=== PATIENT | male | born 1960 | race Hispanic/Latino ===

== ENCOUNTER → 2019-04-18 | Outpatient (CLI) | payer OTHER | END | disposition home or self-care (01) | LOC: OIH 13:41 | PROVIDERS: ATTEND Internal Medicine | DX: M47.815 Spondylosis without myelopathy or radiculopathy, thoracolumbar region (principal); M51.86 Other intervertebral disc disorders, lumbar region; I51.9 Heart disease, unspecified; Z98.890 Other specified postprocedural states | CPT/HCPCS: 71046; 72100 ==

== ENCOUNTER → 2024-03-06 | Outpatient (CLI) | payer MEDICARE | END | disposition home or self-care (01) | LOC: RAH 12:33 | PROVIDERS: ATTEND Internal Medicine Cardiovascular Disease | DX: I35.8 Other nonrheumatic aortic valve disorders (principal); I11.9 Hypertensive heart disease without heart failure; I25.5 Ischemic cardiomyopathy | CPT/HCPCS: 93306 ==

== ENCOUNTER 2024-04-04 06:48 | Observation (INO) | payer MEDICARE ==
[2024-03-30 14:59] VITALS: BP 202/113; PULSE 95; RESP 18; TEMP 97.9
[2024-03-30 15:16] LABS: BASOPHILS # (AUTO) 0.13 K/uL (0.00-0.20); BASOPHILS % (AUTO) 1.3 % (0.0-5.0); EOSINOPHILS # (AUTO) 0.64 K/uL (0.00-0.70); EOSINOPHILS % (AUTO) 6.3 % (0.0-8.0); HEMATOCRIT 45.7 % (42-54); IMMATURE GRANULOCYTE ABSOLUTE 0.04 K/uL (0-1); LYMPHOCYTES # (AUTO) 2.6 K/uL (1.0-4.8); LYMPHOCYTES % (AUTO) 25.7 % (21.0-51.0); MEAN CORPUSCULAR HEMOGLOBIN 28.5 pg (27.0-33.0); MEAN CORPUSCULAR HGB CONC 32.2 g/dL (32.0-36.0); MEAN CORPUSCULAR VOLUME 88.6 fL (79-99); MONOCYTES # (AUTO) 0.8 K/uL (0.1-1.0); MONOCYTES % (AUTO) 7.8 % (3.0-13.0); NEUTROPHILS % (AUTO) 58.5 % (40.0-77.0); PLATELET COUNT (AUTO) 221 K/uL (130-400); RED BLOOD CELL COUNT(AUTO) 5.16 MIL/uL (4.50-6.20); RED CELL DISTRIBUTION WIDTH 13.7 % (11.0-15.5); WHITE BLOOD COUNT (AUTO) 10.2 K/uL (4.8-10.8)
[2024-03-30 15:30] LABS: INR 1.06 (0.85-1.15); PROTHROMBIN TIME 11.4 SEC (9.6-11.6)
[2024-03-30 15:31] LABS: CREATININE 1.1 mg/dL (0.5-1.3); POTASSIUM 4.1 mmol/L (3.5-5.1)
[2024-04-04] VITALS (22 sets, daily range): BP systolic 111–151; BP diastolic 64–92; PULSE 58–79; RESP 14–19; TEMP 97.6–98.2; O2SAT 97
[~2024-04-04] VITALS: Ht 177.8 cm; Wt 92.4 kg
[~2024-04-04 06:48] MED LIST: ATOR40TA71 PO; CARV25TA PO; CLOP75TA32 PO; LISI40TA9 PO; MONT-39 PO; PREG150C47 PO; TIZA-211 PO
[2024-04-04] MEDS ORDERED: dexaMETHasone SOD PHOSPHATE 4 MG/ML 1ML VIAL ONE (07:45)
[2024-04-04] MEDS ORDERED: LIDOCAINE PF 100MG/5ML (2%) SYRINGE 5ML ONE (07:45)
[2024-04-04] MEDS ORDERED: NEOSTIGMINE METHYLSULFATE 1MG/ML IV ONE (07:46)
[2024-04-04] MEDS ORDERED: MIDAZOLAM HCL 1 MG/ML 2ML VIAL ONE (07:46)
[2024-04-04] MEDS ORDERED: GLYCOPYRROLATE 0.2 MG/ML 5 ML VIAL ONE (07:46)
[2024-04-04] MEDS ORDERED: rocuRONium bROMide 10MG/1ML 5ML VL ONE ×2 (07:46→12:01)
[2024-04-04] MEDS ORDERED: ondanSETRON 4MG INJ ONE (07:46)
[2024-04-04] MEDS ORDERED: proPOFol 10 MG/ML 20ML VIAL IV ONE (07:46)
[2024-04-04] MEDS ORDERED: phenylEPHRINE HCL 10 MG/ML 1ML VIAL IV ONE (07:46)
[2024-04-04] MEDS ORDERED: FENTanyl CITRate PF 50 MCG/1 ML 5ML AMP IV ONE (07:47)
[2024-04-04] MEDS ORDERED: ROPivacaine 0.5% 5MG/ML 30ML ONE (07:53)
[2024-04-04] MEDS: ceFAZolin SODIUM 2 GM VIAL ONE (08:35)
[2024-04-04] MEDS: LACTATED RINGERS 1000ML 1,000 ML IV ONE (08:35)
[2024-04-04] MEDS: acetaMINOPHEN 100 ML ONE (10:26)
[2024-04-04] MEDS ORDERED: ePHEDrine SULFate 50 MG/ML AMPULE ONE (10:35)
[2024-04-04] MEDS: ceFAZolin SODIUM 1 GM VIAL ONE (11:10)
[2024-04-04] MEDS: BUPIvacaine HCL/EPINEPHrine/PF 0.25% 10ML VIAL IJ ONE (12:14)
[2024-04-04] MEDS ORDERED: ondanSETRON 4MG INJ IVP PRN (13:00)
[2024-04-04] MEDS ORDERED: INSULIN humuLIN R 100 UNIT/ML 3ML SQ PRN (13:00)
[2024-04-04] MEDS ORDERED: CEFAZOLIN SODIUM IV SCH (13:00)
[2024-04-04] MEDS ORDERED: acetaMINOPHEN 325 MG TAB PO PRN (13:00)
[2024-04-04] MEDS ORDERED: morPHINE 4 MG SYG IV PRN (13:00)
[2024-04-04] MEDS ORDERED: [UNRECOGNIZED DRUG - OTHER] IV SCH (13:00)
--- NOTE | 2024-04-04 13:07 | OP ---
Operative Note: DATE OF PROCEDURE: 04/04/24 SURGEON: ZARI BENAVIDES MD CHISEL WORKER: [facility] – [place] STAFF ANESTHESIA: GENERAL PREOPERATIVE DIAGNOSIS: LEFT INGUINAL HERNIA POSTOPERATIVE DIAGNOSIS: CHRONICALLY INCARCERATED LEFT INGUINAL HERNIA FINDINGS: LEFT DIRECT INGUINAL HERNIA CONTAINING SIGMOID COLON PROCEDURE: [ OPEN REPAIR OF INCARCERATED LEFT INGUINAL HERNIA WITH MESH] ESTIMATED BLOOD LOSS: 40 ML INDICATIONS: . These complications including bleeding, infection (mesh infection and), loss of testicle either during the surgery or in the postoperative period, recurrence of hernia, scrotal swelling and ecchymosis, seroma, chronic nerve pain, chronic groin pain, damages to the spermatic cord, testicle and nerves in the area. DESCRIPTION OF PROCEDURE: [The patient was taken to the operating room and placed on the operating table in supine position. Next general anesthesia was induced the patient was intubated. His abdomen, scrotum and thighs were prepped and and draped in a sterile fashion. A timeout was called and the patient's identity, procedure and preoperative antibiotics were all confirmed. I proceeded to do an open anterior repair of the inguinal hernia. I made a generous left inguinal incision. I dissected down through Camper's and Glory's fascia. I identified the external oblique. I carefully opened up the external oblique with the Metzenbaum scissors. I was not able to visualize the ilioinguinal nerve. I exposed the shelving edge of the inguinal ligament. After being pleased with my exposure I palpated the spermatic cord and encircled around it and I placed a Hortencia around the spermatic cord I dissected off some of the hernia sac off of that. The sac was chronically scarred and adherent to the cord structures. He was a little oozy. He had a history of taking blood thinners. But he did have a direct inguinal hernia. The hernia as reduced and it had contained sigmoid colon. I used an extra large Hernia System. I put the plug into the direct space and secure this with 2-0 prolene. Next I used the flat part of mesh system. This was secured medially to Dominik's ligament and inferiorly to the shelving edge of the inguinal ligament and then superiorly to the internal oblique aponeurosis using 2-0 Prolene sutures. I secured the tails at the end of the keyhole mesh to recreate the ring. Afterwards I irrigated and inspected for active bleeding. No active bleeding was seen. I then reinspected the abdominal cavity and noted that the bowel was still viable and reduced. Note that this is anterior repair. After that I reapplied reapproximated the external oblique with 2-0 running Vicryl. Next I closed the Camper's and Glory's fascia with 2-0 interrupted Vicryl. The skin incisions were reapproximated with mila and sterile dressings were applied. Sponge, needle, instrument counts were accurate the patient's anesthesia was reversed and he was extubated and taken to recovery room in stable condition.] ZARI BENAVIDES MD Apr 04, 2024 13:07
[2024-04-04] MEDS ORDERED: ceFAZolin SODIUM 2 GM VIAL IVPB SCH (13:30)
--- NOTE | 2024-04-04 15:35 | CONS ---
[facility] CONSULTATION NOTE Date of Service: Apr 04, 2024 Reason for Consultation: Post op care Requesting Physician: Dr. Benavides HISTORY OF PRESENT ILLNESS: This is a 64 year old male with a past medical history of hypertension, hyperlipidemia, CAD, NSTEMI, systolic CHF, stroke in 2021 and s/p implantable automatic cardiac defibrillator who came in for repair of an incarcerated left inguinal hernia. Last echocardiogram from Feb 2024 demonstrated systolic congestive heart failure with an ejection fraction of 40-45%. Patient's surgical history is significant for CABG x4 in June of 2014 and defibrillator AICD placement in December of 2014. 04/04/24: Patient is doing generally well post op repair of incarcerated left inguinal hernia. He is saturating well on room air and is hemodynamically stable. He is tolerating heart healthy diet well and is in no acute distress. He states he is able to ambulate on his own to the bathroom. We will continue t o monitor the patient and will start gentle IV hydration if blood pressure softens. Patient currently denies any nausea, vomiting, or pain. REVIEW OF SYSTEMS CONSTITUTIONAL: Denies fevers, chills, or night sweats. No unintentional weight loss reported. NEUROLOGICAL: Denies headache, amaurosis fugax, motor weakness, sensory deficit, vertigo/spinning sensation, gait abnormalities, or tremors. ENT: No hearing loss, otalgia, otorrhea, rhinitis, rhinorrhea, hoarseness, or sore throat. CARDIOVASCULAR: Denies any exertional angina, dyspnea on exertion, orthopnea, paroxysmal nocturnal dyspnea, palpitations, life-threatening arrhythmias, claudication. PULMONARY: Denies any shortness of breath, cough, phlegm/sputum, hemoptysis, pleuritic chest pain. SLEEP: Denies morning headaches, daytime somnolence or napping. Denies difficulty falling asleep, staying asleep, waking from sleep. Denies knowledge of snoring. GASTROINTESTINAL: Denies any type of dysphagia to either liquids or solids. Denies nausea, vomiting, pyrosis, early satiety, abdominal pain, diarrhea, constipation, or changes in stool consistency or caliber. Denies coffee-ground emesis, hematemesis, hematochezia, or melanotic stools. GENITOURINARY: Denies frequency, urgency, nocturia, hematuria or incontinence (Storage/Irritative symptoms.) Low urinary stream, straining to void, urinary intermittency or hesitancy, splitting of the voiding stream, terminal dribbling. ENDOCRINOLOGIC: Denies polyuria, polydipsia, polyphagia or heat/cold intolerances. HEMATOLOGIC: Denies thrombophilia/previous clots, or coagulopathy/bleeding disorders. ONCOLOGIC: Denies personal history of malignancy. DERMATOLOGIC: Denies rashes or pruritus. PSYCHIATRIC: Denies any suicidal or homicidal ideation. Denies hallucinations. PAST MEDICAL HISTORY: Hypertension Hyperlipidemia Gout Insomnia Congestive heart failure PAST SURGICAL HISTORY: CABG x4 coronary artery bypass- Dr. Andrade Cardiac Cath- Jun 08, 2013, Triple vessel disease, stent x1- late Jun 2014 Cath and stent x 1 Prox LAD 05/20/[address] Maria 03/2013 Stent placement x3- Mild LAD Angioplasty, Mid Circ. Stent 03/2015 Stent x1- Cath and stent x1 Prox LAD late- Jun 2014 Cath- s/p Balloon angio September 2014 Defibrillator AICD placement- Dr. Mcdaniels 12/11/2014 Colonoscopy 08/05/15 Stroke 2021 PAST SOCIAL HISTORY: Non-smoker Denies alcohol use Denies illicit drug use Lives alone Occupation: Retired FAMILY HISTORY: Mother: 2006, age 76, coronary atery disease, type II disabets, hypertension Father: alive Sibling: age 42, hypertension Coded Allergies: No Known Drug Allergies (Unverified Allergy, Unknown, 03/30/24) PHYSICAL EXAM GENERAL APPEARANCE: The patient is awake, alert, and oriented, in no acute cardiopulmonary distress. NEUROLOGICAL: Cranial nerves II-XII grossly intact. Motor is 5/5 in bilateral upper and lower extremities proximal to distal. No sensory deficits. HEENT: Face is symmetric. Pupils are equal and reactive. Extraocular movements are intact. NECK: Supple. No JVD. No thyromegaly. No submental, submandibular, pre- /postauricular, occipital or supraclavicular lymphadenopathy. CHEST: Normal chest expansion. No Telemetry. LUNGS: Absence of any rales, rhonchi or any wheezing. CARDIOVASCULAR: Regular. S1 and S2 normal. No appreciable rubs, murmurs or gallops. ABDOMEN: Soft, nontender, and nondistended. There is no rebound, voluntary guarding, or rigidity. : Deferred. No Miranda. EXTREMITIES: Non-edematous and not cyanotic. No clubbing. Good capillary refill. SKIN: No skin breakdown. Vital Sign (Last 24 Hours) 04/04/24 13:23 Temp 97.9 Pulse 63 Resp 16 B/P (MAP) 124/75 Pulse Ox 98 O2 Delivery Nasal Cannula O2 Flow Rate 2.0 LABS: DIAGNOSTICS / RADIOLOGY: DATE OF PROCEDURE: 04/04/24 SURGEON: ZARI BENAVIDES MD HOME HEALTH BILLING SPECIALIST: [facility] – [place] STAFF ANESTHESIA: GENERAL PREOPERATIVE DIAGNOSIS: LEFT INGUINAL HERNIA POSTOPERATIVE DIAGNOSIS: CHRONICALLY INCARCERATED LEFT INGUINAL HERNIA FINDINGS: LEFT DIRECT INGUINAL HERNIA CONTAINING SIGMOID COLON PROCEDURE: [REPAIR OF INCARCERATED LEFT INGUINAL HERNIA] ESTIMATED BLOOD LOSS: 40 ML ASSESSMENT: Post op repair of incarcerated left inguinal hernia completed 04/04/2024 Coronary artery disease, Triple Vessel Disease s/p CABG with stent placement in 2014, POA Chronic systolic heart failure s/p implanted automatic cardiac defibrillator, with EF of 40-45% on Echo Feb 2024 Left sided weakness s/p stroke 2021, POA Hypertension, POA Dyslipidemia, POA PLAN:. Admit patient to medical floor for observation under hospitalist team Home medications reviewed and reconciled Advance diet as tolerated Out of bed as tolerated Maintain fall precautions Monitor for s/s of bleeding Monitor blood pressure, start gentle IVF hydration if needed SCD's and Lovenox for DVT prophylaxis PPi for GI prophylaxis P.r.n. medications for fever, pain, nausea, elevated blood pressure Follow up a.m. labs Further orders per hospital course ATTESTATION BY PHYSICIAN I have seen and examined the patient. I reviewed the documentation, medical decision making, and treatment plan as noted by the resident provider above. I agree with the findings and plan of care. SOPHIA Davis MD, MD Apr 04, 2024 15:35 ALEX GARVEY MD Apr 05, 2024 19:23
[2024-04-04] MEDS: HYDROcodone/APAP 5/325 1 TAB TABLET PO PRN (15:57)
[2024-04-04] MEDS: HEParin 5,000 UNIT VIAL SQ SCH (16:01)
[2024-04-04] MEDS: ceFAZolin SODIUM 2 GM VIAL IVPB SCH (17:47)
[2024-04-04] MEDS: atorVAStatin 40 MG TABLET PO SCH (19:56)
[2024-04-04] MEDS: pregABALin 75 MG CAPSULE PO SCH (19:56)
[2024-04-04] MEDS: FAMOTIDINE 20MG VIAL IV SCH (19:58)
[2024-04-04] MEDS: carVEDIlol 25 MG TABLET PO SCH (19:58)
[2024-04-05] VITALS (9 sets, daily range): BP systolic 127–146; BP diastolic 62–93; PULSE 57–69; RESP 17–18; TEMP 97.5–98.4; O2SAT 95–98
[2024-04-05] MEDS: trAZOdone HCL 50 MG TAB PO ONE (00:37)
[2024-04-05 04:09] LABS: BASOPHILS # (AUTO) 0.03 K/uL (0.00-0.20); BASOPHILS % (AUTO) 0.2 % (0.0-5.0); HEMATOCRIT 40.8 % (42-54); IMMATURE GRANULOCYTE ABSOLUTE 0.04 K/uL (0-1); LYMPHOCYTES # (AUTO) 1.2 K/uL (1.0-4.8); LYMPHOCYTES % (AUTO) 8.2 % (21.0-51.0); MEAN CORPUSCULAR HEMOGLOBIN 28.6 pg (27.0-33.0); MEAN CORPUSCULAR HGB CONC 32.4 g/dL (32.0-36.0); MEAN CORPUSCULAR VOLUME 88.5 fL (79-99); MONOCYTES % (AUTO) 6.9 % (3.0-13.0); NEUTROPHILS # (AUTO) 12.4 K/uL (1.8-7.7); NEUTROPHILS % (AUTO) 84.4 % (40.0-77.0); PLATELET COUNT (AUTO) 171 K/uL (130-400); RED BLOOD CELL COUNT(AUTO) 4.61 MIL/uL (4.50-6.20); WHITE BLOOD COUNT (AUTO) 14.7 K/uL (4.8-10.8)
[2024-04-05 04:17] LABS: CREATININE 1.1 mg/dL (0.5-1.3); POTASSIUM 4.2 mmol/L (3.5-5.1)
[2024-04-05] MEDS: monteLUKAST sodIUM 10 MG TAB PO SCH (08:50)
[2024-04-05] MEDS: LISINOPRIL 40 MG TABLET PO SCH (08:50)
--- NOTE | 2024-04-05 10:46 | PN ---
This is a 64-year-old male status post left inguinal open hernia repair Interval history This 64-year-old male seen in his room resting Patient's pain controlled Incision clean and dry with significant bruising which is expected at this time Patient is passing gas on clear liquid diet Patient reporting he has not been able to ambulate much at this time Assessment and plan Patient will need abdominal binder Patient to continue with physical therapy Advance diet as tolerated Continue with appropriate pain management Patient will remain overnight for observation with possible discharge tomorrow Dr. Avalos to be updated in patient's status. Thank you Vitals/Labs Vital Signs Date Time Temp Pulse Resp B/P (MAP) Pulse Ox O2 Delivery O2 Flow Rate FiO2 04/05/24 08:51 144/88 04/05/24 08:02 98.1 59 17 99 Room Air 21 04/04/24 20:00 0 Laboratory Tests 04/05/24 04:01 Medications Current Medications Cefazolin Sodium 2 gm STK-MED ONCE .ROUTE Last administered on 04/04/24at 09:40; Start 04/04/24 at 07:32; Stop 04/04/24 at 07:32; Status DC Lactated Ringer's 1,000 ml @ As Directed STK-MED ONCE IV Last administered on 04/04/24at 08:35; Start 04/04/24 at 07:32; Stop 04/04/24 at 07:32; Status DC Lidocaine HCl 100 mg STK-MED ONCE .ROUTE; Start 04/04/24 at 07:45; Stop 04/04/24 at 07:45; Status DC Dexamethasone Sodium Phosphate 4 mg STK-MED ONCE .ROUTE; Start 04/04/24 at 07:45; Stop 04/04/24 at 07:45; Status DC Phenylephrine HCl 10 mg STK-MED ONCE IV; Start 04/04/24 at 07:46; Stop 04/04/24 at 07:46; Status DC Midazolam HCl 2 mg STK-MED ONCE .ROUTE; Start 04/04/24 at 07:46; Stop 04/04/24 at 07:46; Status DC Ondansetron HCl 4 mg STK-MED ONCE .ROUTE; Start 04/04/24 at 07:46; Stop 04/04/24 at 07:46; Status DC Glycopyrrolate 1 mg STK-MED ONCE .ROUTE; Start 04/04/24 at 07:46; Stop 04/04/24 at 07:46; Status DC Neostigmine Methylsulfate 10 mg STK-MED ONCE IV; Start 04/04/24 at 07:46; Stop 04/04/24 at 07:46; Status DC Propofol 200 mg STK-MED ONCE IV; Start 04/04/24 at 07:46; Stop 04/04/24 at 07:46; Status DC Rocuronium [place] 50 mg STK-MED ONCE .ROUTE; Start 04/04/24 at 07:46; Stop 04/04/24 at 07:46; Status DC Fentanyl Citrate 250 mcg STK-MED ONCE IV; Start 04/04/24 at 07:47; Stop 04/04/24 at 07:47; Status DC Ropivacaine 150 mg STK-MED ONCE .ROUTE; Start 04/04/24 at 07:53; Stop 04/04/24 at 07:53; Status DC Acetaminophen 100 ml @ As Directed STK-MED ONCE .ROUTE; Start 04/04/24 at 10:26; Stop 04/04/24 at 10:27; Status DC Ephedrine Sulfate 50 mg STK-MED ONCE .ROUTE; Start 04/04/24 at 10:35; Stop 04/04/24 at 10:36; Status DC Cefazolin Sodium 1 gm STK-MED ONCE .ROUTE Last administered on 04/04/24at 11:10; Start 04/04/24 at 11:04; Stop 04/04/24 at 11:05; Status DC Rocuronium [place] 50 mg STK-MED ONCE .ROUTE; Start 04/04/24 at 12:01; Stop 04/04/24 at 12:06; Status DC Bupivacaine HCl/ Epinephrine Bitart 10 ml STK-MED ONCE IJ Last administered on 04/04/24at 12:14; Start 04/04/24 at 12:05; Stop 04/04/24 at 12:06; Status DC Acetaminophen/ Hydrocodone Bitart 1 tab Q4H PRN PO Last administered on 04/05/24at 08:50; Start 04/04/24 at 13:00; Stop 04/09/24 at 12:59 Morphine Sulfate 4 mg Q3H PRN IV; Start 04/04/24 at 13:00; Stop 04/11/24 at 12:59 Cefazolin Sodium 2 gm/Sodium Chloride 50 ml @ 100 mls/hr Q8H IV; Start 04/04/24 at 13:00; Stop 04/04/24 at 13:03; Status DC Ondansetron HCl 4 mg Q4H PRN IVP; Start 04/04/24 at 13:00; Stop 05/04/24 at 12:59 Acetaminophen 650 mg Q4H PRN PO; Start 04/04/24 at 13:00; Stop 05/04/24 at 12:59 Famotidine 20 mg BID IV Last administered on 04/05/24at 08:49; Start 04/04/24 at 21:00; Stop 05/04/24 at 20:59 Insulin Human Regular AD PRN SQ; Start 04/04/24 at 13:00; Stop 05/04/24 at 12:59 Heparin Sodium (Porcine) 5,000 unit TID SQ Last administered on 04/05/24at 09:01; Start 04/04/24 at 14:00; Stop 05/04/24 at 13:59 Cefazolin Sodium 2 gm Q8H IVPB; Start 04/04/24 at 13:30; Stop 04/04/24 at 15:10; Status DC Atorvastatin Calcium 40 mg HS PO Last administered on 04/04/24at 19:56; Start 04/04/24 at 21:00; Stop 05/04/24 at 20:59 Carvedilol 25 mg BID PO Last administered on 04/05/24at 08:51; Start 04/04/24 at 21:00; Stop 05/04/24 at 20:59 Lisinopril 40 mg DAILY PO Last administered on 04/05/24at 08:50; Start 04/05/24 at 09:00; Stop 05/05/24 at 08:59 Montelukast Sodium 10 mg DAILY PO Last administered on 04/05/24at 08:50; Start 04/05/24 at 09:00; Stop 05/05/24 at 08:59 Pregabalin 150 mg BID PO Last administered on 04/05/24at 08:51; Start 04/04/24 at 21:00; Stop 05/04/24 at 20:59 Pharmacy Profile Note PLEASE CLARIFY PREGAB... Q1H MISC; Start 04/04/24 at 15:00; Stop 04/04/24 at 14:43; Status DC Cefazolin Sodium 2 gm Q8H IVPB Last administered on 04/05/24at 02:08; Start 04/04/24 at 17:40; Stop 04/05/24 at 01:41; Status DC Trazodone HCl 25 mg ONCE ONCE PO Last administered on 04/05/24at 00:37; Start 04/05/24 at 00:30; Stop 04/05/24 at 00:34; Status DC MICHAEL EASTMAN Jr. Apr 05, 2024 10:46
--- NOTE | 2024-04-05 11:27 | PN ---
[facility] PROGRESS NOTE Date of Service: Apr 05, 2024 Time of Service: 11:02 SUBJECTIVE: 04/05 - Patient is a 64 year old male s/p day 1 left inguinal hernia repair. Patient is on a clear liquid diet and positive for flatus. Patient is able to ambulate to restroom but complains of pain. Patient pain being controlled by Harrison 5/325 Q4 PO as needed. Incision is clean and dry. Abdomen is soft and non-tender. Patient is afebrile, BP 144/88, saturating well on room air. Diet will be advanced to heart healthy. Labs: white count elevated 14.7 most likely due to surgery, hemoglobin 13.2, hematocrit 40.8, sodium down from 140 to 133, potassium 4.2, BUN 1.6, creatinine 1.1. We will continue to follow recommendations per general surgery. Per surgery, patient will need an abdominal binder and to continue physical therapy. Patient will remain for overnight observation with a possible discharge tomorrow. REVIEW OF SYSTEMS CONSTITUTIONAL: Denies fevers, chills, or night sweats. No unintentional weight loss reported. NEUROLOGICAL: Denies headache, amaurosis fugax, motor weakness, sensory deficit, vertigo/spinning sensation, gait abnormalities, or tremors. ENT: No hearing loss, otalgia, otorrhea, rhinitis, rhinorrhea, hoarseness, or sore throat. CARDIOVASCULAR: Denies any exertional angina, dyspnea on exertion, orthopnea, paroxysmal nocturnal dyspnea, palpitations, life-threatening arrhythmias, claudication. PULMONARY: Denies any shortness of breath, cough, phlegm/sputum, hemoptysis, pleuritic chest pain. SLEEP: Denies morning headaches, daytime somnolence or napping. Denies difficulty falling asleep, staying asleep, waking from sleep. Denies knowledge of snoring. GASTROINTESTINAL: Denies any type of dysphagia to either liquids or solids. Denies nausea, vomiting, pyrosis, early satiety, abdominal pain and tenderness at incision sight, diarrhea, constipation, or changes in stool consistency or caliber. Denies coffee-ground emesis, hematemesis, hematochezia, or melanotic stools. GENITOURINARY: Denies frequency, urgency, nocturia, hematuria or incontinence (Storage/Irritative symptoms.) Low urinary stream, straining to void, urinary intermittency or hesitancy, splitting of the voiding stream, terminal dribbling. ENDOCRINOLOGIC: Denies polyuria, polydipsia, polyphagia or heat/cold intolerances. HEMATOLOGIC: Denies thrombophilia/previous clots, or coagulopathy/bleeding disorders. ONCOLOGIC: Denies personal history of malignancy. DERMATOLOGIC: Denies rashes or pruritus. PSYCHIATRIC: Denies any suicidal or homicidal ideation. Denies hallucinations. PHYSICAL EXAM GENERAL APPEARANCE: The patient is awake, alert, and oriented, in no acute cardiopulmonary distress. NEUROLOGICAL: Cranial nerves II-XII grossly intact. Motor is 5/5 in bilateral upper and lower extremities proximal to distal. No sensory deficits. HEENT: Face is symmetric. Pupils are equal and reactive. Extraocular movements are intact. NECK: Supple. No JVD. No thyromegaly. No submental, submandibular, pre- /postauricular, occipital or supraclavicular lymphadenopathy. CHEST: Normal chest expansion. No Telemetry. LUNGS: Absence of any rales, rhonchi or any wheezing. CARDIOVASCULAR: Regular. S1 and S2 normal. No appreciable rubs, murmurs or gallops. ABDOMEN: Soft, nontender, and nondistended. There is no rebound, voluntary guarding, or rigidity. : Deferred. No Miranda. EXTREMITIES: Non-edematous and not cyanotic. No clubbing. Good capillary refill. SKIN: No skin breakdown. Vital Signs (last 8hr) Date Time Temp Pulse Resp B/P (MAP) Pulse Ox O2 Delivery O2 Flow Rate FiO2 04/05/24 10:51 69 18 N/A Room Air 21 04/05/24 08:51 144/88 04/05/24 08:02 98.1 59 17 144/88 99 Room Air 21 04/05/24 04:00 98.1 61 17 128/62 97 Room Air LABS: Laboratory: Test 04/05/24 04:01 Range/Units White Blood Count 14.7 H 4.8-10.8 K/uL Red Blood Count 4.61 4.50-6.20 MIL/uL Hemoglobin 13.2 L 14.0-18.0 g/dL Hematocrit 40.8 L 42-54 % Mean Corpuscular Volume 88.5 79-99 fL Mean Corpuscular Hemoglobin 28.6 27.0-33.0 pg Mean Corpuscular Hemoglobin Concent 32.4 32.0-36.0 g/dL Red Cell Distribution Width 14.0 11.0-15.5 % Platelet Count 171 130-400 K/uL Mean Platelet Volume 11.5 H 7.5-10.5 fL Immature Granulocyte % (Auto) 0.3 0-1 % Neutrophils (%) (Auto) 84.4 H 40.0-77.0 % Lymphocytes (%) (Auto) 8.2 L 21.0-51.0 % Monocytes (%) (Auto) 6.9 3.0-13.0 % Eosinophils (%) (Auto) 0.0 0.0-8.0 % Basophils (%) (Auto) 0.2 0.0-5.0 % Neutrophils # (Auto) 12.4 H 1.8-7.7 K/uL Lymphocytes # (Auto) 1.2 1.0-4.8 K/uL Monocytes # (Auto) 1.0 0.1-1.0 K/uL Eosinophils # (Auto) 0.00 0.00-0.70 K/uL Basophils # (Auto) 0.03 0.00-0.20 K/uL Absolute Immature Granulocyte (auto 0.04 0-1 K/uL Nucleated Red Blood Cells 0.0 0.0-0.19 % White Cell Morphology Comment See comments Sodium Level 133 L 136-145 mmol/L Potassium Level 4.2 3.5-5.1 mmol/L Chloride Level 100 L 101-111 mmol/L Carbon Dioxide Level 28 21-32 mmol/L Blood Urea Nitrogen 16 7-18 mg/dL Creatinine 1.1 0.5-1.3 mg/dL Glomerular Filtration Rate Calc 74 >90 mL/min Random Glucose 120 H 70-105 mg/dL Total Calcium 8.5 8.5-10.1 mg/dL Current Medications Medications (Trade) Dose Ordered Sig/Sydney Route PRN Reason Start Time Stop Time Status Last Admin Dose Admin Acetaminophen (TYLenol 325MG TAB) 650 mg Q4H PRN PO TEMPERATURE GREATER THAN 101 04/04/24 13:00 05/04/24 12:59 Acetaminophen/ Hydrocodone Bitart (NORco 5/325MG) 1 tab Q4H PRN PO MODERATE PAIN (4-6) 04/04/24 13:00 04/09/24 12:59 04/05/24 08:50 1 TAB Atorvastatin Calcium (LIPItor 40MG) 40 mg HS PO 04/04/24 21:00 05/04/24 20:59 04/04/24 19:56 40 MG Carvedilol (Coreg 25MG) 25 mg BID PO 04/04/24 21:00 05/04/24 20:59 04/05/24 08:51 25 MG Cefazolin Sodium (Ancef) 2 gm Q8H IVPB 04/04/24 13:30 04/04/24 15:10 DC Cefazolin Sodium (Ancef) 2 gm Q8H IVPB 04/04/24 17:40 04/05/24 01:41 DC 04/05/24 02:08 2 GM Cefazolin Sodium 2 gm/Sodium Chloride 50 ml @ 100 mls/hr Q8H IV 04/04/24 13:00 04/04/24 13:03 DC Famotidine (Pepcid 20mg Vial) 20 mg BID IV 04/04/24 21:00 05/04/24 20:59 04/05/24 08:49 20 MG Heparin Sodium (Porcine) (HEParin 5,000 UNIT VIAL) 5,000 unit TID SQ 04/04/24 14:00 05/04/24 13:59 04/05/24 09:01 5,000 UNIT Insulin Human Regular (humuLIN R 100 UNIT/ML 3ML) AD PRN SQ SLIDING SCALE COVERAGE 04/04/24 13:00 05/04/24 12:59 Lisinopril (Prinivil 40mg) 40 mg DAILY PO 04/05/24 09:00 05/05/24 08:59 04/05/24 08:50 40 MG Montelukast Sodium (SinguLAIR) 10 mg DAILY PO 04/05/24 09:00 05/05/24 08:59 04/05/24 08:50 10 MG Morphine Sulfate (morPHINE 4MG SYG) 4 mg Q3H PRN IV SEVERE PAIN (7-10) 04/04/24 13:00 04/11/24 12:59 Ondansetron HCl (zoFRAN 4MG INJ) 4 mg Q4H PRN IVP NAUSEA 04/04/24 13:00 05/04/24 12:59 Pharmacy Profile Note (Pharmacy Communication) PLEASE CLARIFY PREGAB... Q1H MISC 04/04/24 15:00 04/04/24 14:43 DC Pregabalin ([id number]) 150 mg BID PO 04/04/24 21:00 05/04/24 20:59 04/05/24 08:51 150 MG DIAGNOSTICS / RADIOLOGY: ASSESSMENT: Post op repair of incarcerated left inguinal hernia completed 04/04/2024 Coronary artery disease, Triple Vessel Disease s/p CABG with stent placement in 2014, POA Chronic systolic heart failure s/p implanted automatic cardiac defibrillator, with EF of 40-45% on Echo Feb 2024 Left sided weakness s/p stroke 2021, POA Hypertension, POA Dyslipidemia, POA PLAN:. Patient to remain overnight for observation with a possible discharge tomorrow Advance diet to heart healthy Out of bed as tolerated Maintain fall precautions Monitor for s/s of bleeding IS Q1H Monitor blood pressure, start gentle IVF hydration if needed SCD's and Lovenox for DVT prophylaxis PPi for GI prophylaxis P.r.n. medications for fever, pain, nausea, elevated blood pressure Follow up a.m. labs Further orders per hospital course ATTESTATION BY PHYSICIAN I have seen and examined the patient. I reviewed the documentation, medical decision making, and treatment plan as noted by the resident provider above. I agree with the findings and plan of care. Rose Mehta MD, PRIYA N Apr 05, 2024 11:27
[2024-04-06 00:01] VITALS: BP 129/69; PULSE 64; RESP 18; TEMP 98.2
[2024-04-06 04:00] VITALS: BP 153/73; PULSE 59; RESP 17; TEMP 98
[2024-04-06 04:15] LABS: BASOPHILS # (AUTO) 0.11 K/uL (0.00-0.20); BASOPHILS % (AUTO) 0.9 % (0.0-5.0); EOSINOPHILS # (AUTO) 0.16 K/uL (0.00-0.70); EOSINOPHILS % (AUTO) 1.3 % (0.0-8.0); HEMATOCRIT 43.2 % (42-54); IMMATURE GRANULOCYTE ABSOLUTE 0.05 K/uL (0-1); LYMPHOCYTES # (AUTO) 2.6 K/uL (1.0-4.8); LYMPHOCYTES % (AUTO) 21.8 % (21.0-51.0); MEAN CORPUSCULAR HGB CONC 32.2 g/dL (32.0-36.0); MEAN CORPUSCULAR VOLUME 90.2 fL (79-99); MONOCYTES # (AUTO) 0.9 K/uL (0.1-1.0); MONOCYTES % (AUTO) 7.9 % (3.0-13.0); NEUTROPHILS % (AUTO) 67.7 % (40.0-77.0); PLATELET COUNT (AUTO) 156 K/uL (130-400); RED BLOOD CELL COUNT(AUTO) 4.79 MIL/uL (4.50-6.20); RED CELL DISTRIBUTION WIDTH 14.4 % (11.0-15.5); WHITE BLOOD COUNT (AUTO) 11.9 K/uL (4.8-10.8)
[2024-04-06 04:22] LABS: CREATININE 1.2 mg/dL (0.5-1.3); POTASSIUM 4.5 mmol/L (3.5-5.1)
[2024-04-06 07:00] VITALS: O2SAT 95
[2024-04-06 09:39] VITALS: BP 141/69; PULSE 62; RESP 17; TEMP 98.3
[2024-04-06 12:33] VITALS: BP 176/96; PULSE 70; RESP 19; TEMP 98.1
--- NOTE | 2024-04-06 12:40 | PN ---
[facility] PROGRESS NOTE Date of Service: Apr 06, 2024 Time of Service: 12:32 SUBJECTIVE: 04/05 - Patient is a 64 year old male s/p day 1 left inguinal hernia repair. Patient is on a clear liquid diet and positive for flatus. Patient is able to ambulate to restroom but complains of pain. Patient pain being controlled by [place] 5/325 Q4 PO as needed. Incision is clean and dry. Abdomen is soft and non-tender. Patient is afebrile, BP 144/88, saturating well on room air. Diet will be advanced to heart healthy. Labs: white count elevated 14.7 most likely due to surgery, hemoglobin 13.2, hematocrit 40.8, sodium down from 140 to 133, potassium 4.2, BUN 1.6, creatinine 1.1. We will continue to follow recommendations per general surgery. Per surgery, patient will need an abdominal binder and to continue physical therapy. Patient will remain for overnight observation with a possible discharge tomorrow. 04/06 - s/p day 2 left inguinal hernia repair. Patient seen ambulating around the room with an abdominal binder. Patient states pain is better with the binder in place. Patient tolerating heart healthy diet and positive for flatus. Patient white count trending down. H&H stable, sodium 135, potassium 4.5. Patient afebrile, normotensive, and saturating well on room air. Patient is medically stable for discharge. REVIEW OF SYSTEMS CONSTITUTIONAL: Denies fevers, chills, or night sweats. No unintentional weight loss reported. NEUROLOGICAL: Denies headache, amaurosis fugax, motor weakness, sensory deficit, vertigo/spinning sensation, gait abnormalities, or tremors. ENT: No hearing loss, otalgia, otorrhea, rhinitis, rhinorrhea, hoarseness, or sore throat. CARDIOVASCULAR: Denies any exertional angina, dyspnea on exertion, orthopnea, paroxysmal nocturnal dyspnea, palpitations, life-threatening arrhythmias, claudication. PULMONARY: Denies any shortness of breath, cough, phlegm/sputum, hemoptysis, pleuritic chest pain. SLEEP: Denies morning headaches, daytime somnolence or napping. Denies diff iculty falling asleep, staying asleep, waking from sleep. Denies knowledge of snoring. GASTROINTESTINAL: Denies any type of dysphagia to either liquids or solids. Denies nausea, vomiting, pyrosis, early satiety, abdominal pain and tenderness at incision sight, diarrhea, constipation, or changes in stool consistency or caliber. Denies coffee-ground emesis, hematemesis, hematochezia, or melanotic stools. GENITOURINARY: Denies frequency, urgency, nocturia, hematuria or incontinence (Storage/Irritative symptoms.) Low urinary stream, straining to void, urinary intermittency or hesitancy, splitting of the voiding stream, terminal dribbling. ENDOCRINOLOGIC: Denies polyuria, polydipsia, polyphagia or heat/cold intolerances. HEMATOLOGIC: Denies thrombophilia/previous clots, or coagulopathy/bleeding disorders. ONCOLOGIC: Denies personal history of malignancy. DERMATOLOGIC: Denies rashes or pruritus. PSYCHIATRIC: Denies any suicidal or homicidal ideation. Denies hallucinations. PHYSICAL EXAM GENERAL APPEARANCE: The patient is awake, alert, and oriented, in no acute cardiopulmonary distress. NEUROLOGICAL: Cranial nerves II-XII grossly intact. Motor is 5/5 in bilateral upper and lower extremities proximal to distal. No sensory deficits. HEENT: Face is symmetric. Pupils are equal and reactive. Extraocular movements are intact. NECK: Supple. No JVD. No thyromegaly. No submental, submandibular, pre- /postauricular, occipital or supraclavicular lymphadenopathy. CHEST: Normal chest expansion. No Telemetry. LUNGS: Absence of any rales, rhonchi or any wheezing. CARDIOVASCULAR: Regular. S1 and S2 normal. No appreciable rubs, murmurs or gallops. ABDOMEN: Soft, nontender, and nondistended. There is no rebound, voluntary guarding, or rigidity. : Deferred. No Miranda. EXTREMITIES: Non-edematous and not cyanotic. No clubbing. Good capillary refill. SKIN: No skin breakdown. Vital Signs (last 8hr) Date Time Temp Pulse Resp B/P (MAP) Pulse Ox O2 Delivery O2 Flow Rate FiO2 04/06/24 09:39 98.2 62 17 141/69 93 Room Air 21 04/06/24 08:46 153/73 LABS: Laboratory: Test 04/06/24 03:31 04/05/24 04:01 Range/Units White Blood Count 11.9 H 4.8-10.8 K/uL Red Blood Count 4.79 4.50-6.20 MIL/uL Hemoglobin 13.9 L 14.0-18.0 g/dL Hematocrit 43.2 42-54 % Mean Corpuscular Volume 90.2 79-99 fL Mean Corpuscular Hemoglobin 29.0 27.0-33.0 pg Mean Corpuscular Hemoglobin Concent 32.2 32.0-36.0 g/dL Red Cell Distribution Width 14.4 11.0-15.5 % Platelet Count 156 130-400 K/uL Mean Platelet Volume 12.2 H 7.5-10.5 fL Immature Granulocyte % (Auto) 0.4 0-1 % Neutrophils (%) (Auto) 67.7 40.0-77.0 % Lymphocytes (%) (Auto) 21.8 21.0-51.0 % Monocytes (%) (Auto) 7.9 3.0-13.0 % Eosinophils (%) (Auto) 1.3 0.0-8.0 % Basophils (%) (Auto) 0.9 0.0-5.0 % Neutrophils # (Auto) 8.0 H 1.8-7.7 K/uL Lymphocytes # (Auto) 2.6 1.0-4.8 K/uL Monocytes # (Auto) 0.9 0.1-1.0 K/uL Eosinophils # (Auto) 0.16 0.00-0.70 K/uL Basophils # (Auto) 0.11 0.00-0.20 K/uL Absolute Immature Granulocyte (auto 0.05 0-1 K/uL Nucleated Red Blood Cells 0.0 0.0-0.19 % Sodium Level 135 L 136-145 mmol/L Potassium Level 4.5 3.5-5.1 mmol/L Chloride Level 101 101-111 mmol/L Carbon Dioxide Level 31 21-32 mmol/L Blood Urea Nitrogen 23 H 7-18 mg/dL Creatinine 1.2 0.5-1.3 mg/dL Glomerular Filtration Rate Calc 67 >90 mL/min Random Glucose 89 70-105 mg/dL Total Calcium 8.7 8.5-10.1 mg/dL White Cell Morphology Comment See comments Current Medications Medications (Trade) Dose Ordered Sig/[place] Route PRN Reason Start Time Stop Time Status Last Admin Dose Admin Acetaminophen (TYLenol 325MG TAB) 650 mg Q4H PRN PO TEMPERATURE GREATER THAN 101 04/04/24 13:00 05/04/24 12:59 Acetaminophen/ Hydrocodone Bitart (NORco 5/325MG) 1 tab Q4H PRN PO MODERATE PAIN (4-6) 04/04/24 13:00 04/09/24 12:59 04/06/24 07:04 1 TAB Atorvastatin Calcium (LIPItor 40MG) 40 mg HS PO 04/04/24 21:00 05/04/24 20:59 04/05/24 20:28 40 MG Carvedilol (Coreg 25MG) 25 mg BID PO 04/04/24 21:00 05/04/24 20:59 04/06/24 08:46 25 MG Cefazolin Sodium (Ancef) 2 gm Q8H IVPB 04/04/24 13:30 04/04/24 15:10 DC Cefazolin Sodium (Ancef) 2 gm Q8H IVPB 04/04/24 17:40 04/05/24 01:41 DC 04/05/24 02:08 2 GM Cefazolin Sodium 2 gm/Sodium Chloride 50 ml @ 100 mls/hr Q8H IV 04/04/24 13:00 04/04/24 13:03 DC Famotidine (Pepcid 20mg Vial) 20 mg BID IV 04/04/24 21:00 05/04/24 20:59 04/06/24 08:47 20 MG Heparin Sodium (Porcine) (HEParin 5,000 UNIT VIAL) 5,000 unit TID SQ 04/04/24 14:00 05/04/24 13:59 04/06/24 08:49 5,000 UNIT Insulin Human Regular (humuLIN R 100 UNIT/ML 3ML) AD PRN SQ SLIDING SCALE COVERAGE 04/04/24 13:00 05/04/24 12:59 Lisinopril (Prinivil 40mg) 40 mg DAILY PO 04/05/24 09:00 05/05/24 08:59 04/06/24 08:46 40 MG Montelukast Sodium (SinguLAIR) 10 mg DAILY PO 04/05/24 09:00 05/05/24 08:59 04/06/24 08:46 10 MG Morphine Sulfate (morPHINE 4MG SYG) 4 mg Q3H PRN IV SEVERE PAIN (7-10) 04/04/24 13:00 04/11/24 12:59 Ondansetron HCl (zoFRAN 4MG INJ) 4 mg Q4H PRN IVP NAUSEA 04/04/24 13:00 05/04/24 12:59 Pharmacy Profile Note (Pharmacy Communication) PLEASE CLARIFY PREGAB... Q1H MISC 04/04/24 15:00 04/04/24 14:43 DC Pregabalin ([id number]) 150 mg BID PO 04/04/24 21:00 05/04/24 20:59 04/06/24 08:46 150 MG DIAGNOSTICS / RADIOLOGY: [ ] ASSESSMENT: Post op repair of incarcerated left inguinal hernia completed 04/04/2024 Coronary artery disease, Triple Vessel Disease s/p CABG with stent placement in 2014, POA Chronic systolic heart failure s/p implanted automatic cardiac defibrillator, with EF of 40-45% on Echo Feb 2024 Left sided weakness s/p stroke 2021, POA Hypertension, POA Dyslipidemia, POA PLAN:. Patient to remain overnight for observation with a possible discharge tomorrow Advance diet to heart healthy Out of bed as tolerated Maintain fall precautions Monitor for s/s of bleeding IS Q1H Monitor blood pressure, start gentle IVF hydration if needed SCD's and Lovenox for DVT prophylaxis PPi for GI prophylaxis P.r.n. medications for fever, pain, nausea, elevated blood pressure Follow up a.m. labs Further orders per hospital course ATTESTATION BY PHYSICIAN I have seen and examined the patient. I reviewed the documentation, medical decision making, and treatment plan as noted by the resident provider above. I agree with the findings and plan of care. Rose Mehta MD, PRIYA N Apr 06, 2024 12:40
--- NOTE | 2024-04-06 16:46 | DS ---
Discharge Summary HOSPITAL COURSE SUMMARY: [Interval history: This 64-year-old male seen in his room resting. Patient postop day one for left inguinal hernia repair. Patient required some management of pain which requ ired observation one extra night but today patient ready for discharge with multiple bowel movements and tolerating diet. Physical exam General: Awake alert and oriented Heart: Regular rate and rhythm} Lungs: Clear to auscultation no distress Abdomen: [Soft, nontender, nondistended Assessment : Status post left inguinal hernia repair Plan: Patient to follow up in two weeks with Dr. oliver will for continued management no heavy lifting. Patient to avoid constipation. 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): [] PROCEDURES: [Left inguinal hernia] PROBLEM(S): [] DISCHARGE INSTRUCTIONS: [Follow up in two weeks] Home Meds Reported Medications Tizanidine HCl (Tizanidine HCl) 4 Mg Tablet, 1 TAB PO HS for 30 Days, #30 TAB 0 Refills 03/30/24 Atorvastatin Calcium (Atorvastatin Calcium) 40 Mg Tablet, 1 TAB PO HS for 30 Days, #30 TAB 0 Refills 03/30/24 Carvedilol (Carvedilol) 25 Mg Tablet, 1 TAB PO BID for 30 Days, #60 TAB 0 Refills 24 Clopidogrel Bisulfate (Clopidogrel) 75 Mg Tablet, 1 TAB PO DAILY for 30 Days, #30 TAB 0 Refills 2424 Lisinopril (Lisinopril) 40 Mg Tablet, 1 TAB PO DAILY for 30 Days, #30 TAB 0 Refills 2424 Pregabalin (Pregabalin) 150 Mg Capsule, 1 CAP PO BID MDD 2 Capsule(s) for 30 Days, #60 CAP 0 Refills 24 Montelukast Sodium (Montelukast Sodium) 10 Mg Tablet, 1 TAB PO DAILY for 30 Days, #30 TAB 0 Refills 24 Time spent arranging discharge: 1-30 minutes MICHAEL EASTMAN Jr. Apr 06, 2024 16:46
== END 2024-04-06 16:00 | disposition home or self-care (01) ==
LOC: DAH 06:48 → DAHIP 06:49 → 4DH 13:23
PROVIDERS: ADMIT Surgery; ATTEND Surgery
DX: K40.30 Unilateral inguinal hernia, with obstruction, without gangrene, not specified as recurrent (principal); T85.79XA Infection and inflammatory reaction due to other internal prosthetic devices, implants and grafts, initial encounter; D17.6 Benign lipomatous neoplasm of spermatic cord; G89.18 Other acute postprocedural pain; G47.00 Insomnia, unspecified; M10.9 Gout, unspecified; N50.89 Other specified disorders of the male genital organs; I25.2 Old myocardial infarction; I25.10 Atherosclerotic heart disease of native coronary artery without angina pectoris; I11.0 Hypertensive heart disease with heart failure; I50.22 Chronic systolic (congestive) heart failure; E78.5 Hyperlipidemia, unspecified; Z95.810 Presence of automatic (implantable) cardiac defibrillator; Z95.1 Presence of aortocoronary bypass graft; Z79.899 Other long term (current) drug therapy; Z86.73 Personal history of transient ischemic attack (TIA), and cerebral infarction without residual deficits; Y83.2 Surgical operation with anastomosis, bypass or graft as the cause of abnormal reaction of the patient, or of later complication, without mention of misadventure at the time of the procedure
CPT/HCPCS: 80048 ×3; 85025 ×3; 85610; 85730; 36415 ×3; 96372 ×4; 64486; 49507; 96365; 96375; 88302; 88304; 96376 ×2; 96366; A6260; J1100; G0378 ×50; A4223 ×2; A4600; A4663; J7120 ×2; A4606; A4344; C1781; C1729; J3490 ×9; J3010; J0690 ×4; J2003; J2250; J2704; J2405; J2710; J1644 ×6; J2795; J2371; A4649; A4215 ×2; A4222; A4221; A4216